=== PATIENT | female | born 1965 | race Caucasian/White ===

== ENCOUNTER 2023-02-01 13:55 | Outpatient (CLI) | payer BC | END 2023-02-01 23:59 | disposition home or self-care (01) | LOC: CARD DIAG 13:55 | PROVIDERS: ATTEND Internal Medicine | DX: C50.919 Malignant neoplasm of unspecified site of unspecified female breast (principal); I08.0 Rheumatic disorders of both mitral and aortic valves | CPT/HCPCS: 93306 ==